=== PATIENT | male | born 1995 | race Two or more races ===

== ENCOUNTER → 2025-02-14 | Outpatient (CLI) | payer BC, MEDICAID, SELFPAY ==
--- NOTE | 2025-02-14 11:30 | XR_ITS ---
Examination: Ultrasound soft tissue penis TECHNIQUE: Grayscale sonographic images soft tissue penis Date and time: February 14, 2025 1140 hours INDICATIONS: Curvature the penis to the left post injury one month ago. FINDINGS: Arterial and venous flow normal No soft tissue penile mass IMPRESSION: No soft tissue penile mass
== END | disposition home or self-care (01) ==
PROVIDERS: PCP Student in an Organized Health Care Education/Training Program; Referring Provider Student in an Organized Health Care Education/Training Program; Visit Provider Student in an Organized Health Care Education/Training Program
DX: S39.848A Other specified injuries of external genitals, initial encounter (principal); X58.XXXA Exposure to other specified factors, initial encounter
CPT/HCPCS: 76705